=== PATIENT | male | born 1995 | race Caucasian/White ===

== ENCOUNTER 2022-06-10 13:00 | Outpatient (CLI) | payer OTHER | END 2022-06-10 13:01 | disposition EMS.NT | LOC: EMS 13:00 | DX: Z04.1 Encounter for examination and observation following transport accident (principal) ==

== ENCOUNTER 2022-06-10 14:07 | Emergency (ER) | payer OTHER ==
[2022-06-10 14:28] VITALS: BP 135/78
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
== END 2022-06-10 15:52 | disposition home or self-care (01) ==
LOC: ED 14:07
DX: S39.012A Strain of muscle, fascia and tendon of lower back, initial encounter (principal); V43.52XA Car driver injured in collision with other type car in traffic accident, initial encounter; Y93.89 Activity, other specified; Z00.8 Encounter for other general examination
CPT/HCPCS: 99282; 99283

== ENCOUNTER 2022-09-08 17:11 | Outpatient (CLI) | payer OTHER ==
--- NOTE | 2022-09-09 11:38 | MRI Report ---
PROCEDURE: ANKLE WO - LT INDICATIONS: SYNOVITIS AND TENOSYNOVITIS TECHNIQUE: Noncontrast Magnetic Resonance Imaging (MRI) of the ankle/hindfoot was performed utilizing the follow ing sequences: sagittal T1 spin echo, sagittal STIR, axial PD fast spin echo, axial T2 fast spin echo with fat saturation, coronal T2 spin echo with fat saturation, and coronal T1 spin echo. COMPARISON: None. FINDINGS: Image quality: Excellent. Bones and joints: No acute trabecular bone injury or fracture. No hindfoot coalition. The ankle mortise is maintained. No osteochondral defect is seen at the talar dome. There is mild degenerative spurring at the dorsal aspect of the talonavicular joint and navicular cuneiform articulations. Medial structures: The deltoid ligament and the spring ligament are intact. Small amount of fluid is seen surrounding th e distal posterior tibialis tendon, consistent with mild tenosynovitis. The posterior tibialis, flexor digitorum longus, and flexor hallucis longus tendons are intact. The p osterior tibial neurovascular bundle appears normal within the tarsal tunnel, without extrinsic mass effect. Lateral structures: The anterior and posterior distal tibiofibular ligaments are intact. The anterior talofibular ligamen t, posterior talofibular ligament, and calcaneofibular ligament are intact. Mild tendinosis and elisabet ening of the peroneus brevis tendon. The peroneus longus tendon is intact. The sinus tarsi demonstrat es normal fatty signal. Anterior structures: The tibialis anterior, extensor hallucis longus, and extensor digitorum longus tendons appear intact. Posterior and plantar structures: There is mild edema in Kager's fat pad, which may indicate mild peritenonitis. The medial and lateral bands of the plantar fascia are within normal limits. No disproportionate atrophy of the abductor di doris minimi muscle. 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 2.Mild posterior tibialis tenosynovitis. 3.Mild peroneus brevis tendinosis. Reviewed by: Mello Chapin MD on 09/09/2022 11:37 AM PDT Approved by: Mello Chapin MD on 09/09/2022 11:37 AM PDT Station ID: [id number]
== END 2022-09-08 17:12 | disposition home or self-care (01) ==
LOC: DI 17:11
PROVIDERS: ATTEND Family Medicine
DX: M67.972 Unspecified disorder of synovium and tendon, left ankle and foot (principal); M65.9 Synovitis and tenosynovitis, unspecified